=== PATIENT | female | born 1960 | race Caucasian/White ===

== ENCOUNTER 2020-10-27 17:07 | Emergency (ER) | payer OTHER ==
[~2020-10-27] VITALS: Ht 177.8 cm; Wt 70.3 kg
[2020-10-27] MEDS ORDERED: LISINOPRIL10 MG PO (17:26)
[2020-10-27] MEDS ORDERED: KLOR-CON 10 ER10 MEQ PO (17:26)
[2020-10-27] MEDS ORDERED: FUROSEMIDE 20 M20 MG PO (17:26)
[2020-10-27] MEDS ORDERED: CARVEDILOL6.25 M1 PO (17:26)
[2020-10-27] MEDS ORDERED: PREDNISONE50 MG PO (18:53)
[2020-10-27] MEDS ORDERED: PERCOCET 5-3251 EACH PO (18:53)
[2020-10-27] MEDS ORDERED: FLEXERIL PO (18:53)
[2020-10-27 20:00] VITALS: BP 130/78
== END 2020-10-27 20:00 | disposition home or self-care (01) ==
LOC: M.ERS 17:07
DX: M54.31 Sciatica, right side (principal)